=== PATIENT | female | born 1960 | race Caucasian/White ===

== ENCOUNTER 2019-02-22 17:48 | Emergency (ER) | payer MEDICARE, MEDICAID ==
[~2019-02-22] VITALS: Ht 162.6 cm; Wt 56.8 kg
[~2019-02-22 17:48] MED LIST: DIPH-423 PO
[2019-02-22 18:22] VITALS: BP 106/69
== END 2019-02-22 20:27 | disposition home or self-care (01) ==
LOC: ER 17:48
DX: S93.492A Sprain of other ligament of left ankle, initial encounter (principal); Z88.0 Allergy status to penicillin; X50.1XXA Overexertion from prolonged static or awkward postures, initial encounter; Y93.89 Activity, other specified; Y92.89 Other specified places as the place of occurrence of the external cause; Y99.9 Unspecified external cause status
CPT/HCPCS: 73610; 99283